=== PATIENT | male | born 1950 | race Caucasian/White ===

== ENCOUNTER → 2024-02-14 14:52 | Outpatient (REF) | payer MEDICARE, OTHER, SELFPAY | LOC: HWRCS 14:52 | PROVIDERS: ATTENDING PHYSICIAN Physician Assistant | DX: I25.10 Atherosclerotic heart disease of native coronary artery without angina pectoris (principal); I34.0 Nonrheumatic mitral (valve) insufficiency; R60.0 Localized edema | CPT/HCPCS: 93306 ==

== ENCOUNTER 2024-07-05 09:51 | Day surgery (SDC) | payer MEDICARE, OTHER, SELFPAY ==
[2024-07-05 11:04] VITALS: BMI 36.6
--- NOTE | 2024-07-05 12:55 | ITS.CL.CARDI ---
Shot Hole Driller - Cardioversion
Cardioversion
Procedure Report:
Procedure: Direct current electrical cardioversion
Pre-operative diagnosis: Persistent atrial fibrillation
Post-operative diagnosis: Persistent atrial fibrillation status post DC cardioversion to sinus rhythm
Anesthesia: MAC
Attending Physician: Axel Mares MD
Procedure Description: The patient was brought to the electrophysiology laboratory in the fasting state. Adherence to anticoagulation regimen was confirmed. Informed consent was obtained from the patient prior to the start of the procedure.
Electrodes were placed on the patient and connected to an external defibrillator. Monitoring of blood pressure, ECG tracings, and pulse oximetry was initiated. The pads were applied to the patient in the anterior and posterior positions. The patient
was sedated by the anesthesiologist. A 200 joule biphasic synchronized shock was delivered to the patient under MAC anesthesia. Sinus rhythm was successfully restored. The patient recovered uneventfully from MAC anesthesia. There were no immediate
post-procedure complications. The patient left the lab in good condition. The attending physician was present throughout the entire procedure.
Impression: Successful direct current cardioversion with tenriism of sinus rhythm after one 200 joule biphasic synchronized shock.
== END 2024-07-05 12:59 | disposition home or self-care (01) ==
LOC: CATH 09:51
PROVIDERS: ATTENDING PHYSICIAN Internal Medicine Cardiovascular Disease; FAMILY PHYSICIAN Family Medicine; OTHER PHYSICIAN Nuclear Medicine Nuclear Cardiology
DX: I48.19 Other persistent atrial fibrillation (principal); I25.10 Atherosclerotic heart disease of native coronary artery without angina pectoris; G47.33 Obstructive sleep apnea (adult) (pediatric); I10 Essential (primary) hypertension; E78.5 Hyperlipidemia, unspecified; Z95.0 Presence of cardiac pacemaker; Z95.1 Presence of aortocoronary bypass graft; Z79.01 Long term (current) use of anticoagulants
CPT/HCPCS: 92960; 93005

== ENCOUNTER 2024-08-01 11:20 | Inpatient (IN) | payer MEDICARE, OTHER, SELFPAY ==
[2024-07-24 10:48] VITALS: BMI 36.2
[2024-07-24 11:10] LABS: % Basophils 0.6 % (0-2); % Eosinophils 0.9 % (0-6); % Immature Granulocytes 0.2 % (0-0.5); % Lymphocytes 14.8 % (20.5-51.1); % Monocytes 7.2 % (1.7-9.3); % Neutrophils 76.3 % (42.2-75.2); Absolute Basophils 0.1 10^3/uL (0-0.2); Absolute Eosinophils 0.1 10^3/uL (0-0.7); Absolute Lymphocytes 1.6 10^3/uL (1.2-3.4); Absolute Monocytes 0.8 10^3/uL (0.1-0.6); Mean Corp Hgb Conc. 31.6 g/dL (33.0-37.0); Mean Corpuscular Hgb 28.8 pg (27.0-31.0); Mean Corpuscular Volume 91.3 fL (80.0-94.0); Nucleated Red Blood Cells % 0 % (-); Platelet Count 266 10^3/uL (130-400); Red Blood Cell Count 4.16 10^6/uL (4.70-6.10); Red Cell Dist. Width 16.4 % (11.5-14.5); White Blood Cell Count 10.5 10^3/uL (4.8-10.8)
[2024-07-24 11:21] LABS: ALT (SGPT) 31 U/L (0-50); AST (SGOT) 34 U/L (17-59); Albumin 4.6 g/dl (3.5-5.0); Alkaline Phosphatase 135 U/L (38-126); Blood Urea Nitrogen 19 mg/dl (9-20); Calcium 9.7 mg/dl (8.4-10.2); Carbon Dioxide 22 mmol/L (22-30); Chloride 109 mmol/L (98-107); Estimated Creatinine Clearance 61 ml/min; Glucose 100 mg/dl (70-99); Magnesium 2.3 mg/dl (1.6-2.3); Potassium 4.3 mmol/L (3.5-5.1); Sodium 145 mmol/L (135-145); Total Bilirubin 2.1 mg/dl (0.2-1.3); Total Protein 7.6 g/dl (6.3-8.2); eGFR > 60.00
[2024-07-24 11:28] LABS: INR 1.81; PT 20.8 Sec (11.4-14.6)
[2024-08-01] VITALS (18 sets, daily range): BP systolic 91–143; BP diastolic 57–91; BMI 35.7
--- NOTE | 2024-08-01 07:15 | PTCARENOTE ---
Pt arrived to medical lab assistant recovery at 0620. Pt arrived on 2liter nasal ,( pt wears at home) pt needed to rest a few minutes to catch breath prior to walking to bathroom. Pt's pulse ox 97%. Pt changed into gown after going to the bathroom, once patient
resting for about 10 minutes pt's breathing more comfortable. Pt stating he has become more short of breath easily with about taking 10 steps at home. Pt's lungs clear to auscultation. Pt appeared comfortable after resting for a few minutes. +4
pitting edema noted b/l lower extremities , pt also stated this just started 3 weeks ago, and stated none of his shoes fit. Dr Hair Hernandez in to see patient at 0655, made aware of pt's increased shortness of breath and increased swelling in legs
the last [address] Squires in to see patient at 0710 and made aware as well. No further treatment ordered. Pt resting comfortably on 2l nasal cannula pulse ox remaining 97%.
[2024-08-01] MEDS: PROSCAR 5 MG PO (07:22)
--- NOTE | 2024-08-01 08:19 | ITS.CL.ABL ---
Car Manager - Ablation
Ablation
Procedure Report:
ELECTROPHYSIOLOGIC STUDY AND POSSIBLE ABLATION
DATE: August 01, 2024
Primary Care Provider: Dr. Mali Montejo
Primary Cross Country Coach: Dr Hay Gomes
INDICATION:
Symptomatic Atrial Fibrillation.
Persistent
HISTORY: See H and P.
Symptomatic AF, poorly controlled with attempted medical therapy
He has a history of longstanding persistent hypertension. He underwent PVI in July 2022 and had been on amiodarone which was subsequently discontinued. He has developed recurrent atrial fibrillation as well as decompensated heart failure with
preserved ejection fraction. He has experienced increasing dyspnea on exertion, increasing weight gain and increasing lower extremity edema over the past 2 to 3 months.
Additionally he has a history of pulmonary hypertension which appears to be secondary related to volume overload.
Transesophageal echo from June 2023 demonstrated LVEF of 50 to 55% with mild LVH, biatrial enlargement, no left atrial appendage thrombus, mild MR and moderate to severe tricuspid regurgitation.
He has a history of coronary artery disease with with prior coronary artery bypass grafting surgery 2009.
He has history of prior permanent pacemaker implantation from 2022 with left bundle branch pacing.
Additionally, he has obstructive sleep apnea with prior poor compliance which apparently has improved. He also has a history of restrictive lung disease with decreased diffusion capacity.
Most recent coronary artery angiogram is October 15, 2021 demonstrating two-vessel coronary artery disease with patent DAVIS to LAD and SVG to OM1. The douglas LAD is noted to be flush occluded at the ostium. The distal LAD fills by patent DAVIS to
LAD. There is 100% proximal occluded OM1. The OM1 fills distally by a patent SVG to the OM1. The RCA is noted to have mild luminal irregularities.
Of note, he is presenting with progressive symptoms of decompensated congestive heart failure over the past 3 months. In addition to ablation today he will need hospitalization to manage decompensated heart failure which preexists today's
procedure. Furthermore, antiarrhythmic drug therapy has also been discussed as an outpatient. Patient and his prefer to avoid amiodarone. Will also proceed with planned dofetilide loading this hospital stay as was previously discussed as an
outpatient.
HAS-BLED: 1
Age
CHADSVASc: 4
CHF, NYHA Class 2, HFpEF
HTN
Age
Vascular Dz: CAD
PRESENTING RHYTHM: AF
ANTICOAGULATION: Eliquis 5 mg twice daily
'TIME-OUT': called and confirmed.
SEDATION/ANESTHESIA: provided via the anesthesia department using general anesthesia.
PROCEDURE:
Ultrasound Guidance performed by me was utilized for femoral venous Vascular Access b/l.
A decapolar CS catheter was placed within the CS for mapping and pacing.
The intracardiac ultrasound catheter was positioned in the RA for continuous intracardiac ultrasound imaging.
Heparin bolus and infusion to target ACT at 300 -350 seconds was administered. Transseptal puncture was performed. This entailed advancing a sheath with dilator into the superior vena cava and withdrawing both (monitoring intracardiac ultrasound,
fluoroscopy and tip pressure) with the tip oriented toward the atrial septum. The fossa ovalis was engaged (indicated by sudden displacement of the sheath tip as well as tenting of the fossa seen on intracardiac ultrasound).
Brockenbrough needle was utilized for transseptal. Left atrial catheter position was confirmed by echocardiographic imaging, pressure monitoring (LA mean pressure 15 mm Hg) and fluoroscopy. The sheath was advanced over the dilator and positioned in
the left atrium.
The multipolar mapping catheter was initially positioned through the transseptal sheath for high density mapping.
Geometry and voltage mapping was performed using the [employer] multipolar grid catheter. Ensite-X was utilized for three-dimensional electroanatomical mapping.
External cardioversion resulted in sinus rhythm.
A 3-D map was created using Ensite-X in Voxel mode. A 3-D reconstructed CT image was compared to the 3-D Navex map to assist in anatomic evaluation, mapping and ablation.
Anatomically there are 4 distinct pulmonary veins (LSPV, LIPV, RSPV, RIPV).
This demonstrated electrical isolation of the posterior wall of the left atrium, electrical isolation of the right superior and right inferior pulmonary veins as well as electrical isolation of the left inferior pulmonary vein. There is
reconnection at the left superior pulmonary vein towards its superior posterior quadrant.
The [employer] Pulse Select PFA catheter and system was used for cardiac ablation. Catheter positioning was guided and confirmed using both I.C.E. and fluoroscopy.
Initial target for ablation is reisolation of the left superior pulmonary vein using pulsed electric field energy. Subsequent to this additional ablation lesion set was performed ablating along the pulmonary venous side of the ligament of Rod
resulting in wide area circumferential ablation extending anteriorly along both left superior and left inferior pulmonary vein sets.
During today's procedure, programmed electrical stimulation in sinus rhythm including burst atrial pacing as well as delivery of atrial decremental extrastimuli failed to induce any sustained arrhythmias.
I.C.E. :
Pre-Ablation Post-Ablation
LVEF: 55 % 55 %
WMA: none none
Pericardial effusion: none none
COMPLICATIONS:
None
SUMMARY:
- Mapping and ablation to re-isolate the PVs
- Additional AF ablation set after PVI.
- 3-D Electroanatomical Mapping
- Intracardiac Ultrasound
- Additionally, the [employer] dual-chamber permanent pacemaker is interrogated at the beginning of the study and at the end of the study and is found to have stable normal function. Reprogramming of bradycardia pacing to DDDR 60�130. Furthermore
there is no change in the fluoroscopic appearance of the leads.
Post ablation, I discussed today's findings and results with the patient's , Natacha..
RECOMMENDATIONS:
- Observe in monitored bed.
- Maintain oral anticoagulation.
- Planned antiarrhythmic drug loading with dofetilide
- He is presenting with 3 months of progressive heart failure so while he is here we will plan for IV Lasix diuresis
- Office visit with Dr Gomes in 3 months.
- His dyspnea on exertion appears to be multifactorial related to both his cardiovascular disease with persistent symptomatic atrial fibrillation as well as his underlying lung disease. He will need continued evaluation and management of both for
maximal symptom improvement.
Copy to:
Dr. Mali Montejo
Dr Hay Gomes
[2024-08-01 09:07] LABS: ACT-LR - POC 353 Seconds (116-155)
[2024-08-01 09:28] LABS: ACT-LR - POC 340 Seconds (116-155)
[2024-08-01] MEDS: TYLENOL 650 MG PO ×3 (12:43→22:18)
[2024-08-01] MEDS: TIKOSYN 500 MCG PO (12:45)
--- NOTE | 2024-08-01 13:46 | W.CARD.TIKOS ---
Initiate Tikosyn
-
I verify that the patient has not taken any verapamil (Isoptin/Calan), ketoconazole (Nizoral), cimetidine (Tagamet), trimethoprim (Trimpex), trimethoprim/sulfamethoxazole (Bactrim), megesterol (Megace), prochlorperazine (Compazine),
hydrochlorothiazide (HCTZ), dolutegravir (Tivicay) or any Class I or Class III anti-arrhythmic within the last three days
AND
I verify that the patient has not taken amiodarone within the last THREE months, or that the patient's amiodarone plasma concentration is <0.3 mcg/mL.
Creatinine 1.2 mg/dL (0.7-1.3) 07/24/24 10:53
Estimated Creat Clear 61 ml/min 07/24/24 10:53
Does patient have a Ventricular Conduction Abnormality: No
I have assessed the baseline QTc interval (using QT for heart rate less than 60 bpm) and deemed the patient is appropriate for Dofetilide therapy. I understand that Tikosyn is contraindicated if the QTc is >440msec (500msec in patients with
ventricular conduction abnormalities).
Baseline QTc (in msec): 496
QTc interval is greater than 440msec without conduction abnormality OR greater than 500msec with a conduction abnormality, but acceptable to proceed per Cardiology attending.
Reason for Administration with Prolonged QTc: Paced Rhythm
Ordering Physician: Jose Enrique Hernandez
--- NOTE | 2024-08-01 13:49 | CM ---
Addendum entered by Kamila Huggins 08/01/24 15:33:
Telephone call to [facility] ([phone]) to check on co-pay for Dofetilide 500 mcg po bid. His co-pay would be $24.40 a month at [facility] and $40.19 for 90 day supply via mail order. Telephone call to [facility] in [place] to see if they have
Dofetilide 500 mcg in stock. [facility] does not have Dofetilide 500 mcg in stock. It will take them a few days to get in in once they receive the script. He will need a three day supply to go home with him. A three day script will need to be
sent to [facility] to get the three day supply.
Original Note:
Reviewed chart. Met with Mr. Nix to review discharge plans. He states prior to admission he resides with his spouse in a two story home with two steps to enter. He states he has a bedroom/full bathroom on eah floor. He states prior to
admission he was independent with ambulation adn and adls. He states ambulating is difficylt due to his SOB. He states he uses home 02 at 2 liters. He states [employer] services his home 02. He states he has a concentrator, portable, CPAP and
Nebulizer at home. He states he has a prescription plan and uses mail order and [facility] when needed. Medical work-up in progress. The discharge plan is to return home with his spouse when medically stable.
[2024-08-01] MEDS: LASIX 40 MG IV (16:02)
--- NOTE | 2024-08-01 17:48 | PTCARENOTE ---
Pt received post ablation, pt c/o pain due to sosa catheter, plan to remove in am. Right femoral vein site with dry and intact dressing, no sign of bleeding or hematoma. Pt hypersensitive to touch at this site and even when the bedsheet is lifted
and nothing is touched!!! Figure of eight suture removed per protocol, steristrip placed over puncture site, no sign of bleeding or hematoma. Pt with tachypnea, SOB at rest on 4L oxygen. Resp rate 24-28, 3+ RUDDY. Pt given 2 doses of lasix. Pt reports
3 months of SOB, RUDDY and years of coughing. Pt helped OOB to the chair using a walker, resp rate resolved to his baseline within 3 minutes. Telemetry shows atrial sensed V paced rhythm, Tikosyn 500mcg given but DC'd due to QTc >600ms.
[2024-08-01] MEDS: SENOKOT 8.6 MG PO (20:30)
[2024-08-01] MEDS: COLACE 100 MG PO (20:30)
[2024-08-01] MEDS: ROXICODONE 5 MG PO (20:30)
[2024-08-01] MEDS: ELIQUIS 5 MG PO (20:30)
[2024-08-01] MEDS: BYSTOLIC 5 MG PO (20:32)
[2024-08-02 05:01] LABS: Hematocrit 32.6 % (39.0-52.0); Hemoglobin 10.6 g/dL (13.0-18.0); Mean Corp Hgb Conc. 32.5 g/dL (33.0-37.0); Mean Corpuscular Hgb 30.1 pg (27.0-31.0); Mean Corpuscular Volume 92.6 fL (80.0-94.0); Mean Platelet Volume 10.4 fL (7.4-10.4); Platelet Count 201 10^3/uL (130-400); Red Blood Cell Count 3.52 10^6/uL (4.70-6.10); Red Cell Dist. Width 16.2 % (11.5-14.5); White Blood Cell Count 11.4 10^3/uL (4.8-10.8)
[2024-08-02 05:17] VITALS: BP 126/74
[2024-08-02 05:23] LABS: Blood Urea Nitrogen 24 mg/dl (9-20); Calcium 9.3 mg/dl (8.4-10.2); Carbon Dioxide 20 mmol/L (22-30); Chloride 107 mmol/L (98-107); Estimated Creatinine Clearance 66 ml/min; Glucose 144 mg/dl (70-99); Magnesium 2.2 mg/dl (1.6-2.3); Potassium 4.5 mmol/L (3.5-5.1); Sodium 141 mmol/L (135-145); eGFR > 60.00
[2024-08-02 05:36] VITALS: BMI 35.6
--- NOTE | 2024-08-02 06:00 | PTCARENOTE ---
Pt received at change of shift. VSS, Vpaced on tele with HR in the 60s, satting 96% on 4L NC. R groin site c/d/i with no complications noted. Pt instructed to hold pressure to site when coughing. OOB with x1 assist and rolling walker. TELLEZ, and
is able to recover within a few minutes at rest. Barraza catheter removed in AM per order. Pt due to void at 1100. Can make needs known. Call soares within reach.
[2024-08-02 06:12] LABS: Hepatitis C Antibody Negative (Negative)
[2024-08-02] MEDS: VENTOLIN NEBULES 2.5 MG INH (08:12)
[2024-08-02] MEDS: SPIRIVA RESPIMAT 2.5 MCG 2 PUFF INH (08:12)
[2024-08-02] MEDS: SYMBICORT 160/4.5 MCG INHALER 2 PUFF INH ×2 (08:12→19:36)
[2024-08-02 08:21] VITALS: BP 122/78
[2024-08-02] MEDS: ELIQUIS 5 MG PO ×2 (08:49→20:23)
[2024-08-02] MEDS: NORVASC 5 MG PO (08:49)
[2024-08-02] MEDS: COLACE PO (08:49)
[2024-08-02] MEDS: ZYLOPRIM 100 MG PO (08:49)
[2024-08-02] MEDS: LASIX 40 MG PO (08:49)
[2024-08-02] MEDS: PROSCAR 5 MG PO (08:50)
[2024-08-02] MEDS: CRESTOR 20 MG PO (08:50)
--- NOTE | 2024-08-02 09:51 | W.PN.CARDCBS ---
Addendum entered and electronically signed by Jose Enrique Hernandez MD 08/02/24 14:24:
Patient seen, interviewed and examined by me.
Well-appearing, no acute distress
Regular rate and rhythm with normal S1 and S2, no S3 no S4. There is a grade 1/6 apical holosystolic murmur and no rubs. PMI is normally placed.
Lungs Expiratory wheezes bilaterally particularly at the bases
Abdomen soft nontender nondistended with normoactive bowel sounds
Extremities show improved edema bilaterally no clubbing or cyanosis.
Neurologic exam is grossly nonfocal.
He has clinical heart failure, heart failure with preserved ejection fraction decompensating 3 months prior to this hospital visit. We will take this opportunity to more aggressively treat him. Lasix 40 mg IV now, check blood work in the morning,
if he is feeling better we can discharge him to home on a higher dose of outpatient Lasix. That is we would increase Lasix to 40 mg p.o. daily and check blood work again in 1 week.
Regarding his arrhythmias, attempt at type III antiarrhythmic drug therapy resulted in QT interval prolongation. If he has recurrence of atrial fibrillation we could once again consider amiodarone with close QT interval monitoring.
Original Note:
Today's Communication / Plan
-
post ablation, failed dofetilide loading
consult pulm for increased WOB, hypoxia, wheezes
Switch Lasix to PO 40mg this am
poss d/c home later today or tomorrow
Impression / Plan
-
Primary Care Provider: Dr. Mali Montejo
Primary Design Teacher: Dr Hay Gomes
He has a history of longstanding persistent hypertension. He underwent PVI in July 2022 and had been on amiodarone which was subsequently discontinued. He has developed recurrent atrial fibrillation as well as decompensated heart failure with
preserved ejection fraction. He has experienced increasing dyspnea on exertion, increasing weight gain and increasing lower extremity edema over the past 2 to 3 months.
Additionally he has a history of pulmonary hypertension which appears to be secondary related to volume overload.
Transesophageal echo from June 2023 demonstrated LVEF of 50 to 55% with mild LVH, biatrial enlargement, no left atrial appendage thrombus, mild MR and moderate to severe tricuspid regurgitation.
He has a history of coronary artery disease with with prior coronary artery bypass grafting surgery 2009.
He has history of prior permanent pacemaker implantation from 2022 with left bundle branch pacing.
Additionally, he has obstructive sleep apnea with prior poor compliance which apparently has improved. He also has a history of restrictive lung disease with decreased diffusion capacity.
Most recent coronary artery angiogram is October 15, 2021 demonstrating two-vessel coronary artery disease with patent DAVIS to LAD and SVG to OM1. The eagle LAD is noted to be flush occluded at the ostium. The distal LAD fills by patent DAVIS to
LAD. There is 100% proximal occluded OM1. The OM1 fills distally by a patent SVG to the OM1. The RCA is noted to have mild luminal irregularities.
Of note, he is presenting with progressive symptoms of decompensated congestive heart failure over the past 3 months. In addition to ablation today he will need hospitalization to manage decompensated heart failure which preexists today's
procedure. Furthermore, antiarrhythmic drug therapy has also been discussed as an outpatient. Patient and his prefer to avoid amiodarone. Will also proceed with planned dofetilide loading this hospital stay as was previously discussed as an
outpatient.
Impression:
Symptomatic persistent Afib prior PVI 08/14
post redo PVI 08/01/24
Acute on chronic diastolic HFpEF
Acute on chronic hypoxic respiratory failure
AYLA/CPAP
HTN
RLD/COPD Home O2 PRN
SSS post PPM 2022
CAD prior CABGx2 2020
mod-severe TR
Gout
Asthma
Depression
Anxiety
Plan:
post ablation with elevated filling pressures
IV diuresis -1700cc, still with WOB and wheezing this am
Attempted antiarrhythmic drug therapy with Dofetilide but after 1 dose QTc 613, stopped
He failed Amiodarone unsure of reaction but would prefers to avoid, but if needs it would be willing to try if Afib recurs
CHADSVASc =4
Will c/s Pulmonary with continued respiratory distress and hypoxia despite diuresis
Switch to PO lasix 40mg daily, LE edema much improved, Check BMP in 1-2 weeks
reinforced strict I/O, daily wts, 2GNa diet
Continue OAC Eliquis
continue nebivolol
Activity restrictions reviewed
C&DB, I.S.
f/u DCA 3 mo
poss home later today or tomorrow pending pulm input
Progress Note - Design Teacher
Subjective
Date of Service: August 02, 2024
no cp, moderate dyspnea and WOB
Objective
Labs:
08/02/24 04:45
08/02/24 04:45
Labs
Hgb 10.6 g/dL (13.0-18.0) L 08/02/24 04:45
Hct 32.6 % (39.0-52.0) L 08/02/24 04:45
Plt Count 201 10^3/uL (130-400) 08/02/24 04:45
PT 20.8 Sec (11.4-14.6) H 07/24/24 10:53
INR 1.81 07/24/24 10:53
Sodium 141 mmol/L (135-145) 08/02/24 04:45
Potassium 4.5 mmol/L (3.5-5.1) 08/02/24 04:45
BUN 24 mg/dl (9-20) H 08/02/24 04:45
Creatinine 1.1 mg/dL (0.7-1.3) 08/02/24 04:45
Glucose 144 mg/dl (70-99) H 08/02/24 04:45
Vital Signs and I&O:
Vital Signs
Temp Pulse Resp BP Pulse Ox
97.4 F 63 24 122/78 94
08/02/24 08:35 08/02/24 08:21 08/02/24 08:35 08/02/24 08:21 08/02/24 08:41
Vital Signs
Temp Pulse Resp BP Pulse Ox
97.4 F 63 24 122/78 94
08/02/24 08:35 08/02/24 08:21 08/02/24 08:35 08/02/24 08:21 08/02/24 08:41
Intake & Output
07/31/24 08/01/24 08/02/24 08/03/24
06:59 06:59 06:59 06:59
Intake Total 985 / 985 240 / 240
Output Total 2700 / 2700 125 / 125
Balance -1715 / -1715 115 / 115
Physical Exam
Physical Exam
NAD, AOX3
S1, S2, RRR, I/ JUWAN
diminished t/o, exp wheeze t/o, no rales, rhonchi
SNTND bsx4
R fem site c/d/i, soft, no HT
+2 b/l LE edema
--- NOTE | 2024-08-02 09:53 | CON.PUL ---
Consultation
Consultation Request
Date/Time Consultation Requested: 08/02/2024- AM
Date/Time Consultation Performed: 08/02/2024- AM
Requesting Provider: Hospitalist
Performing Provider: Dr. Quinonez
Reason for Consultation: Shortness of breath and wheezing
Medical History
-
Chief Complaint: Shortness of breath and wheezing
History of Present Illness:
73-year-old male non-smoker with a history of COPD/asthma overlap, pulmonary nodules, CAD, AYLA, obesity with longstanding shortness of breath and atrial fibrillation status post cardioversion and now ablation with significant wheezing and shortness
of breath thereafter-pulmonary consulted for wheezing/shortness of breath 08/02/2024. Patient states that his shortness of breath is progressively gotten worse. His leg swelling is also gotten significantly worse. He denies any chest pain, chest
tightness but admits to wheezing. He has no chest congestion, productive cough, mopped assist, postnasal drip, reflux, abdominal pain.
Past Medical History
Past Medical History: None (COPD/asthma overlap. Restrictive lung disease. Decreased diffusing capacity. Pulmonary nodule. Mediastinal lymphadenopathy. Hypertension. CAD/CABG 2009. Depression. Atrial fibrillation/cardioversion/ablation.
Insomnia. Obesity. Gout.)
Past Surgical History: None (Appendectomy. CABG. Root canal. Hemorrhoid surgery. Knee replacement 2012.)
Social History
Tobacco: Non-smoker
Alcohol: Occasional
Drug: None
Personal:
Living: With Family
Occupational Exposures: No known asbestos exposure
Environmental Exposures: No known tuberculosis exposure
Family History
Family History: Other (Father-CVA. Mother-melanoma)
Allergies / Home Medications
Allergies
Allergy/AdvReac Type Severity Reaction Status Date / Time
Yellow Jacket Allergy Anaphylaxis Uncoded 07/22/23 07:43
Home Medications
�Medication �Instructions �Recorded �Confirmed �Last Taken �Type
rosuvastatin 20 mg tablet 20 mg PO DAILY 11/07/12 08/01/24 07/31/24 09:00 History
epinephrine 0.3 mg/0.3 mL 0.3 mg (0.3 mL) IM .STAT PRN bee 07/14/19 08/01/24 Unknown Rx
injection, auto-injector (EpiPen) sting with allergic reacti ##2
allopurinol 100 mg tablet 100 mg PO DAILY 10/15/21 08/01/24 07/31/24 09:00 History
amlodipine 5 mg tablet 5 mg PO DAILY 10/15/21 08/01/24 07/31/24 09:00 History
apixaban 5 mg tablet (Eliquis) 5 mg PO BID 10/15/21 08/01/24 07/31/24 19:00 History
finasteride 5 mg tablet 5 mg PO DAILY 10/15/21 08/01/24 07/31/24 09:00 History
albuterol sulfate 2.5 mg/3 mL 2.5 mg inhalation DAILY 08/05/22 08/01/24 07/31/24 09:00 History
(0.083 %) solution for nebulization
nebivolol 5 mg tablet (Bystolic) 5 mg PO HS 11/10/22 08/01/24 07/31/24 19:00 History
budesonide 160 mcg-glycopyr 9 2 inh inhalation DAILY 07/05/24 08/01/24 07/31/24 09:00 History
mcg-formot 4.8 mcg/actuation HFA
inhaler (Breztri Aerosphere)
furosemide 20 mg tablet 20 mg PO DAILY 07/05/24 08/01/24 07/31/24 09:00 History
Review of Systems
Vitals / Labs / Diagnostic Testing
Vital Signs
Temp Pulse Resp BP Pulse Ox
97.4 F 63 24 122/78 94
08/02/24 08:35 08/02/24 08:21 08/02/24 08:35 08/02/24 08:21 08/02/24 08:41
Lab Data
08/02/24 04:45
08/02/24 04:45
Diagnostic Testing:
Assessment
-
73-year-old male non-smoker with a history of COPD/asthma overlap, pulmonary nodules, CAD, AYLA, obesity with longstanding shortness of breath and atrial fibrillation status post cardioversion and now ablation with significant wheezing and shortness
of breath thereafter-pulmonary consulted for wheezing/shortness of breath 08/02/2024
Status post ablation-failed dofetilide loading
COPD/asthma overlap with mild acute exacerbation
Mild leukocytosis-WBC 11.4
Xeyqwb-khfuanbfya-aquhsaaeqj 10.6
Mild hyperglycemia-blood sugar 144
Conditions present prior to admission:
COPD/asthma overlap.
Restrictive lung disease.
Decreased diffusing capacity.
Pulmonary nodule.
Mediastinal lymphadenopathy.
Hypertension.
CAD/CABG 2009.
Depression.
Atrial fibrillation/cardioversion/ablation.
Insomnia.
Obesity.
Gout.
Appendectomy. CABG. Root canal. Hemorrhoid surgery. Knee replacement 2012.
Plan
Patient's respiratory decompensation likely a combination of fluid overload as well as underlying COPD/asthma overlap-wheezing may be 'cardiac wheezing'
Patient has been followed by pulmonary for many years and below are summarized his radiographs, CT chest, PET scan, VQ scan, PFTs, and cardiac workup
His chronic shortness of breath is felt to be multifactorial-cardiac, arrhythmias, restrictive lung disease, obesity, severe reduction in diffusing capacity, mild anemia and has been maintained on Breztri and nebulizers in addition to oxygen-2 L at
rest and 5 L with exertion-has portable oxygen concentrator
Supplement oxygen as needed
Nebulizers-Xopenex and ipratropium bromide
Continue with Symbicort and Spiriva
Resume Breztri when discharged
Will consider Biologics such as Dupixent with persistent wheezing
Check chest x-ray
Check proBNP
Consider diuresis with significant increase in leg edema
Monitor renal function, electrolytes, intake/output, lower extremity edema and weight
Replace electrolytes as needed
Cardiology following-correspondence reviewed
The patient has had significant lymphadenopathy which is actually increased-consideration towards biopsy has been discussed on multiple occasions-patient does not want workup-potential for lymphoproliferative disorder has been reviewed with him-he
understands and does not wish further workup-will continue to address
Monitor hemoglobin
Transfuse as needed
Monitor blood sugar
Insulin supplementation as needed
DVT prophylaxis-on Eliquis
Nutrition
Early mobilization
The patient usually sees Dr. Quinonez in the office-last saw 08/23/2023 and saw Vita Ruyb 05/31/[address] Quinonez 9:30 AM 10/02/2024
Diagnostic data:
Chest x-ray 10/11/12-NAD .�������
Chest x-ray 12/09/21-Mild CHF-patient notified-told to see jewelry manager.�������
CT Chest 07/13/22: Solitary 6 mm right upper lobe pulmonary nodule. Mild centrilobular emphysematous change. Scattered moderately enlarged mediastinal and bilateral hilar lymph nodes. .�������
CT chest 12/24/2022-Comparison made to 07/13/2022, unchanged 6.4 mm nodule anterior right apex in the upper lobe, mild centrilobular emphysema, fairly extensive mediastinal and hilar lymphadenopathy measuring up to 14 mm but no appreciable change in
size compared to prior CT, right hilar lymph node measures 19 mm previously 19 mm�����
CT chest 07/07/23-slightly progressed diffuse moderately enlarged mediastinal and hilar lymphadenopathy, suspicious for indolent lymphoproliferative disorder
PET scan 01/07/2023-Stable mediastinal and hilar lymphadenopathy with only mild FDG avid and favor reactive, stable right upper lobe nodule without significant FDG activity and a new 7 mm left upper lobe nodule without significant FDG activity,
grossly stable lymphadenopathy measuring up to 1.8 cm in the precarinal region with a maximum SUV 4.1, 3.6 cm in the right hilar region maximum SUV 2.9 and 2.5 cm in the left hilar region maximum SUV 2.7, 6 mm nodule right upper lobe maximum SUV 1.2
and the new 7 mm nodule in the left upper lobe maximum SUV 1.0-patient notified-repeat CT chest in 4 months make appointment with PFTs-Dr. Quinonez placed call to review with radiology-if lymph nodes are truly significantly larger I will discuss
potential biopsy sooner than the 4-month observational follow-up�������
PET 01/07/2023: Stable mediastinal and hilar lymphadenopathy, only mildly FDG avid and favored reactive. Precarinal lymph node measuring 1.8 cm, SUV max 4.1. 3.6 cm node in the right hilar region, max SUV 2.9. 2.5 cm node in the left hilar region,
max SUV 2.7. Stable small right upper lobe nodule without significant FDG activity, max SUV 1.2. New 7 mm left upper lobe nodule without significant FDG activity, max SUV 1. Overall findings are most in keeping with a waxing and waning
infectious/inflammatory process. Recommend follow-up nonstick contrast CT in 3 to 6 months.�������.�������
PET scan 01/07/23-Dr. Quinonez reviewed with radiology-asked for addendum as discrepancy was noted on CT and PET lymph node measurements-addendum reviewed-mediastinal and hilar lymphadenopathy is grossly stable in size compared to prior CT 12/24/22 when
measured in similar fashion .�������
Chest x-ray 03/07/23-Mild cardiomegaly, mild bilateral upper lobe emphysema, previous CABG .�������
Chest x-ray 07/07/43-NAD.�������
CT chest 07/07/43-slightly progressed diffuse moderately enlarged mediastinal and hilar lymphadenopathy, new right axillary lymphadenopathy suspicious for indolent lymphoproliferative disorder, stable or resolved small pulmonary nodules-patient
notified-told may need biopsy.�������
VQ scan 07/07/23-low probability for pulmonary embolism-patient notified
Echocardiogram 09/10/15-EF 55-60%, mild mitral regurgitation, no aortic stenosis, PA systolic 27��
�����
Cardiac catheterization 10/15/2126-Ume-crclxy CAD, patent DAVIS to LAD and SVG to OM 1, normal left ventricular function.�������
Cardioversion 01/01/22-successful cardioversion to sinus rhythm with 200 J synchronized shock�������
ECHO 07/09/2022: Normal LV size and function. EF 60 to 65%. Mild concentric LVH. Mild to moderate MR. Mild to moderate TR. Estimated PA pressure 49-51.
PFT 12/01/21-FEV1 2.11 L-73%, FVC 3.07 L-77BD response, TLC 73%, RV 69%, DLCO 46%. Mild restriction and moderate reduction in diffusing capacity.�������
Spirometry 03/02/22-FEV1 1.93 L-67%, FVC 2.75 L-69%. Mild restriction.�������
PFT 02/23/23-FEV1 2.23-70%, FVC 3.07-70%, TLC 76%, RV 73%, DLCO 29%, DLCO/VA 55%. Mild restriction and moderate reduction in diffusing capacity.�������
Spirometry 06/07/23-FEV1 1.98-70%, FVC 2.9-74%. Mild restriction.�������
Spirometry 08/23/23-FEV1 1.84-65%, FVC 2.6-67%. Moderate restriction.
HST 03/19/22-NACHO-16.7, desaturation derek 77, 4.8% of time, less than 90% saturation
Data Reviewed
-
PFT: Report reviewed by me
EKG: Report reviewed by me
Radiology: Image personally visualized and interpreted and Report reviewed by me
CT Scan: Image personally visualized and interpreted and Report reviewed by me
Medical Tests (Nuc Med, Echo etc): Report reviewed by me
Labs: Labs reviewed by me
Total Time Spent with Patient (in minutes): 65
[2024-08-02 11:35] VITALS: BP 115/72
[2024-08-02 12:46] LABS: NT-proBNP 4380 pg/ml
[2024-08-02] MEDS: XOPENEX 0.63 MG INHALANT SOLUTION INH ×2 (13:06→19:35)
[2024-08-02] MEDS: ATROVENT NEBULES 0.5 MG INH ×2 (13:06→19:35)
--- NOTE | 2024-08-02 13:50 | CM ---
Reviewed chart. Met with and Mrs. Nix to review discharge plans. He states he is feelin sob. He states he not taking dofetilide anymore. Prior to admission he resides with his spouse in a two story home with two steps to enter. He has a
bedroom/full bathroom on each floor. Prior to admission he was independent with ambulation and adls. Ambulating has been difficult due to his SOB. He has home 02 at home and [employer] services his home 02. He has a concentrator, Portable home 02,
CPAP Machine and Nebulizer at home. He has a prescription plan and uses mail order and [facility] when needed. Will need to see his current functional level to see if he will have any skilled care needs. Medical work-up in progress. The
discharge plan is to return home with his spouse when medically stable.
[2024-08-02] MEDS: LASIX 40 MG IV (14:37)
[2024-08-02 15:50] VITALS: BP 110/66
--- NOTE | 2024-08-02 19:19 | PTCARENOTE ---
Pt OOB to chair and walking @15 feet in his room with oxygen, limited by his extreme SOB with activity. Pt takes 2 minutes of rest to return to his baseline. Pt seen by . Pt stated great improvement after a neb treatment. Pt voiding
without difficulty after sosa catheter was removed and has diuresed >1000ml after IV lasix . Pro BNP 4380. Telemetry shows paced rhythm at a rate of 60-70.
[2024-08-02 19:37] VITALS: BP 124/73
[2024-08-02] MEDS: COLACE 100 MG PO (20:22)
[2024-08-02] MEDS: SENOKOT 8.6 MG PO (20:22)
[2024-08-02] MEDS: BYSTOLIC 5 MG PO (20:23)
[2024-08-02 23:19] VITALS: BP 127/88
--- NOTE | 2024-08-03 04:11 | PTCARENOTE ---
Pt remains AV Paced on tele with HR in the 60s. R groin site from ablation c/d/i with no sign of hematoma. Pt requesting to take oxygen off to walk to bathroom, encouraged to keep O2 on for ambulation but refuses. RN supervised pt ambulate to
bathroom with rolling walker. After using the bathroom and washing his face, pt appeared SOB. Pt ambulated back to bed and satting 82%. 2L O2 placed back on pt, recovered back to 94% at rest. Plan of care discussed and pt reports no concerns at
this time. Can make needs known. Call soares within reach.
[2024-08-03 05:25] VITALS: BP 149/79
[2024-08-03 05:26] VITALS: BP 149/79
[2024-08-03 05:31] VITALS: BMI 35.6
[2024-08-03 06:22] LABS: Blood Urea Nitrogen 26 mg/dl (9-20); Calcium 8.9 mg/dl (8.4-10.2); Carbon Dioxide 21 mmol/L (22-30); Chloride 106 mmol/L (98-107); Estimated Creatinine Clearance 66 ml/min; Glucose 109 mg/dl (70-99); Magnesium 2.1 mg/dl (1.6-2.3); Sodium 142 mmol/L (135-145); eGFR > 60.00
[2024-08-03] MEDS: SYMBICORT 160/4.5 MCG INHALER 2 PUFF INH (07:16)
[2024-08-03] MEDS: ATROVENT NEBULES 0.5 MG INH (07:16)
[2024-08-03] MEDS: XOPENEX 0.63 MG INHALANT SOLUTION INH (07:16)
[2024-08-03 08:01] VITALS: BP 128/117
[2024-08-03 08:04] VITALS: BP 136/75
[2024-08-03] MEDS: COLACE 100 MG PO (08:32)
[2024-08-03] MEDS: CRESTOR 20 MG PO (08:32)
[2024-08-03] MEDS: ZYLOPRIM 100 MG PO (08:32)
[2024-08-03] MEDS: NORVASC 5 MG PO (08:32)
[2024-08-03] MEDS: LASIX 40 MG PO (08:33)
[2024-08-03] MEDS: ELIQUIS 5 MG PO (08:33)
[2024-08-03] MEDS: PROSCAR 5 MG PO (08:33)
--- NOTE | 2024-08-03 09:05 | W.PN.CARDCBS ---
Addendum entered and electronically signed by KIMBERLY Pyle 08/06/24 16:02:
Clarification on patient respiratory status:
Acute on chronic hypoxic respiratory failure - patient uses oxygen continuously at home with increased oxygen during hospitalization
Addendum entered and electronically signed by Yuesf Kwan MD 08/03/24 10:29:
Patient seen and examined
Agree with HAULAGE ENGINE OPERATOR note and assessment
. HAULAGE ENGINE OPERATOR plan
Examination:
�
����Physical Exam
�
���������������������General:��no apparent distress, not acutely ill
�
���������������������������Neck:��supple. no meningeal signs. normal psoterior pharynx
������������������������
���������������������������Heart:��s1/s2 regular rate and rhythm, no murmur. equal radial pulses.
�
��������������������������Lungs: ��no acute respiratory distress. clear bilaterally
�
����������������������Abdomen:�normal bowel sounds. not tender. no CVAT
�
��������������������������Neuro:��alert and oriented. no focal neurological deficits
�
������������������������������Skin: ��no rash
�
�����������������������Psychiatric:�well kept. interactive and cooperative
�
�����������������������Extremities:��no edema. no calf tenderness. negative homans. good distal pulses
�
�
�
��
�
IMPRESSION
Persistent AFib, prior PCI (07/2022)
S/P PFA, 08/01/2024
Acute on chronic diastolic HFpEF, 55-60%
Acute on chronic hypoxic respiratory failure
RLD/COPD, on home O2
Severe pulm HTN, PA 70-75 (01/2024)
SSS, s/p PPM 2(09/2022)
CAD, s/p CABx2 (01/2010)
mod-severe TR
HTN
Gout
Asthma
Depression
Anxiety
PLAN:
Tele- V/AV paced 60s, underlying sinus rhythm
Groin site stable
Failed dofetilide therapy, amiodarone contraindicated w/pulm issues
Eliquis resumed post procedure
Wheezing/dyspnea modestly improved after diuresis w/IV lasix- will increase home lasix to 40mg daily
Appreciate Pulm consult- albuterol discontinued in favor of Xopenex, will resume Breztri at home, pulm followup in September
followup at [facility] office as scheduled
home today
Original Note:
Today's Communication / Plan
-
Increase outpt lasix to 40mg/d
Pulm to order xopenex, adjust pulm meds
home today
Impression / Plan
-
PCP: Mali Montejo MD
CDY: Hay Gomes, DO
Pulm: Favian Quinonez MD
73 y/o PMH sig for AFib w/PVI in 2021, presenting now with 3 month history progressive heart failure symptoms, including dyspnea and BLE 3-4+ edema. He has multifactorial dyspnea related to COPD/hypoxic respiratory failure on home O2 as well as
recurrent symptomatic AFib. [id number]=2, maintained on eliquis 5mg BID.
Presented to EP lab 08/01, s/p PFA. Post procedure, plan was for dofetilide initiation, however with first dose he developed prolonged QT and drug was discontinued. He remained overnight for diuresis and pulmonary consult to help with
COPD/respiratory failure. Did will with IV lasix and will increase daily po dose at d/c. Pulm inhalers and MN adjusted per pulm. CXR w/possible HF component moreso than pulmonary at this time.
Feeling much better today with reduced BLE edema and breathing is stable on new pulm meds, oxygen.
IMPRESSION
Persistent AFib, prior PCI (07/2022)
S/P PFA, 08/01/2024
Acute on chronic diastolic HFpEF, 55-60%
Acute on chronic hypoxic respiratory failure
RLD/COPD, on home O2
Severe pulm HTN, PA 70-75 (01/2024)
SSS, s/p PPM 2(09/2022)
CAD, s/p CABx2 (01/2010)
mod-severe TR
HTN
Gout
Asthma
Depression
Anxiety
PLAN:
Tele- V/AV paced 60s, underlying sinus rhythm
Groin site stable
Failed dofetilide therapy, amiodarone contraindicated w/pulm issues
Eliquis resumed post procedure
Wheezing/dyspnea modestly improved after diuresis w/IV lasix- will increase home lasix to 40mg daily
Appreciate Pulm consult- albuterol discontinued in favor of Xopenex, will resume Breztri at home, pulm followup in September
followup at [facility] office as scheduled
home today
PREADMIT DATA:
He has a history of longstanding persistent hypertension. He underwent PVI in July 2022 and had been on amiodarone which was subsequently discontinued. He has developed recurrent atrial fibrillation as well as decompensated heart failure with
preserved ejection fraction. He has experienced increasing dyspnea on exertion, increasing weight gain and increasing lower extremity edema over the past 2 to 3 months.
Additionally he has a history of pulmonary hypertension which appears to be secondary related to volume overload.
Transesophageal echo from June 2023 demonstrated LVEF of 50 to 55% with mild LVH, biatrial enlargement, no left atrial appendage thrombus, mild MR and moderate to severe tricuspid regurgitation.
He has a history of coronary artery disease with with prior coronary artery bypass grafting surgery 2009.
He has history of prior permanent pacemaker implantation from 2022 with left bundle branch pacing.
Additionally, he has obstructive sleep apnea with prior poor compliance which apparently has improved. He also has a history of restrictive lung disease with decreased diffusion capacity.
Most recent coronary artery angiogram is October 15, 2021 demonstrating two-vessel coronary artery disease with patent DAVIS to LAD and SVG to OM1. The andreafski LAD is noted to be flush occluded at the ostium. The distal LAD fills by patent DAVIS to
LAD. There is 100% proximal occluded OM1. The OM1 fills distally by a patent SVG to the OM1. The RCA is noted to have mild luminal irregularities.
Progress Note - Developer Architect
Subjective
Date of Service: August 03, 2024
improved, stable dyspnea
denies cp/palps
oob to chair, bathroom
using continuous O2
Objective
Labs:
Labs
Hgb 10.6 g/dL (13.0-18.0) L 08/02/24 04:45
Hct 32.6 % (39.0-52.0) L 08/02/24 04:45
Plt Count 201 10^3/uL (130-400) 08/02/24 04:45
PT 20.8 Sec (11.4-14.6) H 07/24/24 10:53
INR 1.81 07/24/24 10:53
Sodium 142 mmol/L (135-145) 08/03/24 05:29
Potassium 4.0 mmol/L (3.5-5.1) 08/03/24 05:29
BUN 26 mg/dl (9-20) H 08/03/24 05:29
Creatinine 1.1 mg/dL (0.7-1.3) 08/03/24 05:29
Glucose 109 mg/dl (70-99) H 08/03/24 05:29
Vital Signs and I&O:
Vital Signs
Temp Pulse Resp BP Pulse Ox
97.3 F 67 18 136/75 94
08/03/24 08:03 08/03/24 08:32 08/03/24 08:28 08/03/24 08:32 08/03/24 08:28
Vital Signs
Temp Pulse Resp BP Pulse Ox
97.3 F 67 18 136/75 94
08/03/24 08:03 08/03/24 08:32 08/03/24 08:28 08/03/24 08:32 08/03/24 08:28
Intake & Output
08/01/24 08/02/24 08/03/24 08/04/24
06:59 06:59 06:59 06:59
Intake Total 985 / 985 240 / 240
Output Total 2700 / 2700 1880 / 1880 150 / 150
Balance -1715 / -1715 -1640 / -1640 -150 / -150
Physical Exam
Physical Exam
AAOx3, MAEE 02/25
RRR S1 S2, 1/6 murmur at apex
Bilat bibasilar expiratory wheezing noted, mildly dyspneic at rest
soft abd, + bs
right groin site without ht/bleeding
bilat extremties w/+2-3 edema, warm, palpable pulses
[2024-08-03 09:15] LABS: Hemoglobin 11.6 g/dL (13.0-18.0); Mean Corp Hgb Conc. 33.1 g/dL (33.0-37.0); Mean Corpuscular Hgb 30.9 pg (27.0-31.0); Mean Corpuscular Volume 93.3 fL (80.0-94.0); Mean Platelet Volume 10.4 fL (7.4-10.4); Platelet Count 227 10^3/uL (130-400); Red Blood Cell Count 3.75 10^6/uL (4.70-6.10); Red Cell Dist. Width 16.5 % (11.5-14.5); White Blood Cell Count 16.6 10^3/uL (4.8-10.8)
[2024-08-03 09:44] LABS: Blood Urea Nitrogen 25 mg/dl (9-20); Calcium 9.4 mg/dl (8.4-10.2); Carbon Dioxide 21 mmol/L (22-30); Chloride 104 mmol/L (98-107); Estimated Creatinine Clearance 61 ml/min; Glucose 133 mg/dl (70-99); Potassium 3.9 mmol/L (3.5-5.1); Sodium 144 mmol/L (135-145); eGFR > 60.00
--- NOTE | 2024-08-03 10:22 | W.PN.PUL.V3 ---
Today's Communication / Plan
-
Wean oxygen
Continue diuresis
Continue nebulizers while he will
Discharge on Breztri, Xopenex as well as oxygen-no steroids needed
Assessment
-
73-year-old male non-smoker with a history of COPD/asthma overlap, pulmonary nodules, CAD, AYLA, obesity with longstanding shortness of breath and atrial fibrillation status post cardioversion and now ablation with significant wheezing and shortness
of breath thereafter-pulmonary consulted for wheezing/shortness of breath 08/02/2024
Status post ablation-(failed dofetilide loading)
COPD/asthma overlap with mild acute exacerbation
Mild leukocytosis-WBC 11.4
Atncxj-azbijnqzgv-ghnisoodnp 10.6
Mild hyperglycemia-blood sugar 144
Conditions present prior to admission:
COPD/asthma overlap.
Restrictive lung disease.
Decreased diffusing capacity.
Pulmonary nodule.
Mediastinal lymphadenopathy.
Hypertension.
CAD/CABG 2009.
Depression.
Atrial fibrillation/cardioversion/ablation.
Insomnia.
Obesity.
Gout.
Appendectomy. CABG. Root canal. Hemorrhoid surgery. Knee replacement 2012.
Plan
Patient's respiratory decompensation likely a combination of fluid overload as well as underlying COPD/asthma overlap-wheezing may be 'cardiac wheezing'
Patient has been followed by pulmonary for many years and below are summarized his radiographs, CT chest, PET scan, VQ scan, PFTs, and cardiac workup
His chronic shortness of breath is felt to be multifactorial-cardiac, arrhythmias, restrictive lung disease, obesity, severe reduction in diffusing capacity, mild anemia and has been maintained on Breztri and nebulizers in addition to oxygen-2 L at
rest and 5 L with exertion-has portable oxygen concentrator
Supplement oxygen as needed-attempt to wean to room air-assess discharge supplemental oxygen needs
Nebulizers-Xopenex and ipratropium bromide
Patient likes Xopenex better than albuterol-will arrange as an outpatient
Continue with Symbicort and Spiriva
Resume Breztri when discharged-reviewed with cardiology
Will consider Biologics such as Dupixent with persistent wheezing
Chest x-ray with mild edema
proBNP elevated
Continue diuresis with significant increase in leg edema-improving with diuresis and wheezing improving with diuresis
Monitor renal function, electrolytes, intake/output, lower extremity edema and weight
Replace electrolytes as needed
Cardiology following-correspondence reviewed
The patient has had significant lymphadenopathy which is actually increased-consideration towards biopsy has been discussed on multiple occasions-patient does not want workup-potential for lymphoproliferative disorder has been reviewed with him-he
understands and does not wish further workup-will continue to address
Monitor hemoglobin
Transfuse as needed
Monitor blood sugar
Insulin supplementation as needed
DVT prophylaxis-on Eliquis
Nutrition
Early mobilization
Stable from a pulmonary perspective for proposed discharged-continue with Breztri and Xopenex in addition to oxygen
The patient usually sees Dr. Quinonez in the office-last saw 08/23/2023 and saw Vita Ruby 05/31/[address] Quinonez 9:30 AM 10/02/2024
Diagnostic data:
Chest x-ray 10/11/12-NAD .�������
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
CT Chest 07/13/22: Solitary 6 mm right upper lobe pulmonary nodule. Mild centrilobular emphysematous change. Scattered moderately enlarged mediastinal and bilateral hilar lymph nodes. .�������
CT chest 12/24/2022-Comparison made to 07/13/2022, unchanged 6.4 mm nodule anterior right apex in the upper lobe, mild centrilobular emphysema, fairly extensive mediastinal and hilar lymphadenopathy measuring up to 14 mm but no appreciable change in
size compared to prior CT, right hilar lymph node measures 19 mm previously 19 mm�����
CT chest 07/07/23-slightly progressed diffuse moderately enlarged mediastinal and hilar lymphadenopathy, suspicious for indolent lymphoproliferative disorder
PET scan 01/07/2023-Stable mediastinal and hilar lymphadenopathy with only mild FDG avid and favor reactive, stable right upper lobe nodule without significant FDG activity and a new 7 mm left upper lobe nodule without significant FDG activity,
grossly stable lymphadenopathy measuring up to 1.8 cm in the precarinal region with a maximum SUV 4.1, 3.6 cm in the right hilar region maximum SUV 2.9 and 2.5 cm in the left hilar region maximum SUV 2.7, 6 mm nodule right upper lobe maximum SUV 1.2
and the new 7 mm nodule in the left upper lobe maximum SUV 1.0-patient notified-repeat CT chest in 4 months make appointment with PFTs-Dr. Quinonez placed call to review with radiology-if lymph nodes are truly significantly larger I will discuss
potential biopsy sooner than the 4-month observational follow-up�������
PET 01/07/2023: Stable mediastinal and hilar lymphadenopathy, only mildly FDG avid and favored reactive. Precarinal lymph node measuring 1.8 cm, SUV max 4.1. 3.6 cm node in the right hilar region, max SUV 2.9. 2.5 cm node in the left hilar region,
max SUV 2.7. Stable small right upper lobe nodule without significant FDG activity, max SUV 1.2. New 7 mm left upper lobe nodule without significant FDG activity, max SUV 1. Overall findings are most in keeping with a waxing and waning
infectious/inflammatory process. Recommend follow-up nonstick contrast CT in 3 to 6 months.�������.�������
PET scan 01/07/23-Dr. Quinonez reviewed with radiology-asked for addendum as discrepancy was noted on CT and PET lymph node measurements-addendum reviewed-mediastinal and hilar lymphadenopathy is grossly stable in size compared to prior CT 12/24/22 when
measured in similar fashion .�������
Chest x-ray 03/07/23-Mild cardiomegaly, mild bilateral upper lobe emphysema, previous CABG .�������
Chest x-ray 07/07/43-NAD.�������
CT chest 07/07/43-slightly progressed diffuse moderately enlarged mediastinal and hilar lymphadenopathy, new right axillary lymphadenopathy suspicious for indolent lymphoproliferative disorder, stable or resolved small pulmonary nodules-patient
notified-told may need biopsy.�������
VQ scan 07/07/23-low probability for pulmonary embolism-patient notified
Echocardiogram 09/10/15-EF 55-60%, mild mitral regurgitation, no aortic stenosis, PA systolic 27��
�����
Cardiac catheterization 10/15/2177-Rfl-fesqlo CAD, patent DAVIS to LAD and SVG to OM 1, normal left ventricular function.�������
Cardioversion 01/01/22-successful cardioversion to sinus rhythm with 200 J synchronized shock�������
ECHO 07/09/2022: Normal LV size and function. EF 60 to 65%. Mild concentric LVH. Mild to moderate MR. Mild to moderate TR. Estimated PA pressure 49-51.
PFT 12/01/21-FEV1 2.11 L-73%, FVC 3.07 L-77BD response, TLC 73%, RV 69%, DLCO 46%. Mild restriction and moderate reduction in diffusing capacity.�������
Spirometry 03/02/22-FEV1 1.93 L-67%, FVC 2.75 L-69%. Mild restriction.�������
PFT 02/23/23-FEV1 2.23-70%, FVC 3.07-70%, TLC 76%, RV 73%, DLCO 29%, DLCO/VA 55%. Mild restriction and moderate reduction in diffusing capacity.�������
Spirometry 06/07/23-FEV1 1.98-70%, FVC 2.9-74%. Mild restriction.�������
Spirometry 08/23/23-FEV1 1.84-65%, FVC 2.6-67%. Moderate restriction.
HST 03/19/22-NACHO-16.7, desaturation derek 77, 4.8% of time, less than 90% saturation
Subjective Data
-
Date of Service:
Date of Service: August 03, 2024
Chief Complaint: Pulmonary Follow Up and Dyspnea Follow Up
Subjective:
Feels better, diuresis helped, less leg edema, no shortness of breath at rest, wheezing improved, no chest pain
Review of Systems
General: Other (Per HPI)
Objective Data
Data Reviewed
Vital Signs / I&O:
Vital Signs
Temp Pulse Resp BP Pulse Ox
97.3 F 67 18 136/75 94
08/03/24 08:03 08/03/24 08:32 08/03/24 08:28 08/03/24 08:32 08/03/24 08:28
Intake and Output
08/02/24 08/03/24 08/04/24
06:59 06:59 06:59
Intake Total 985 / 985 240 / 240
Output Total 2700 / 2700 1880 / 1880 150 / 150
Balance -1715 / -1715 -1640 / -1640 -150 / -150
SaO2: 94
Nasal Cannula flow liters per minute: 3
Physical Exam
General: Respiratory Distress (n) and Comfortable
HEENT: Normocephalic, Anicteric and Moist Mucous Membranes
Cardiovascular: Regular Rhythm and Peripheral Edema (+1)
Respiratory: Wheeze (Still some but improved), Crackles (Rare basilar), Rhonchi (n), Non-Labored Respirations, Accessory Resp Muscle Use (n) and Stridor (n)
GI: Soft, Non Distended and Non Tender
Neurology: Awake, Alert and No Motor Deficits
Skin: Warm, Good Color, Cyanosis (n) and Jaundice
Labs/Micro/Reports
Lab Data
08/03/24 09:04
08/03/24 09:04
--- NOTE | 2024-08-03 10:25 | PN.CDI ---
CDI
- -
CDI:
Physician Documentation Request
Admit Date: 08/01/24 11:20
Dear Kaycee Byrd,
Progress notes contain a diagnosis of 'Acute on chronic hypoxic respiratory failure RLD/COPD, on home O2'
08/01 nursing note states ' Pt arrived on 2liter nasal ,( pt wears at home)'
Could you please clarify patient respiratory status:
Acute on chronic hypoxic respiratory failure - patient uses oxygen continuously at home with increased oxygen during hospitalization
Hypoxia (intermittent home o2 use)
Other
Use of terms such as suspected, likely, concern for, or probable (associated with a specific diagnosis that is being evaluated, monitored, or treated as if it exists) are acceptable and can be coded in the inpatient setting, when documented at the
time of discharge.
Thank you,
Dorothy Monroe RN, BSN
CDI Specialist
tiger text
Please use your independent medical judgment in providing your response.
--- NOTE | 2024-08-03 11:08 | PTCARENOTE ---
Patient and pt did not want to wait for proper influenza vaccine to be restocked on unit. Pt discharged home with staff escort to car and left with spouse. RN reviewed all d/c medications and gave patient script for blood work.
--- NOTE | 2024-08-03 11:44 | W.DS.TRANS ---
DC Summary - [employer]
-
Discharge Instructions:
Discharge Diagnosis/Procedures Afib post ablation
Diet Low Cholesterol,Restrict fluids to 64 oz
Driving Restrictions No driving for 24 hours
Blood Work check BMP in 1 week- results to Dr. Hernandez
Specialty Instructions Weigh Daily
Instructions:
Stand-Alone Forms: DC Instructions- Cath/EP Lab
Changes to Home Medications: Yes
Discharge Medications:
DC Medications w/original date entered in [facility]
rosuvastatin 20 mg tablet 20 mg PO DAILY 11/07/12
allopurinol 100 mg tablet 100 mg PO DAILY 10/15/21
amlodipine 5 mg tablet 5 mg PO DAILY 10/15/21
apixaban 5 mg tablet (Eliquis) 5 mg PO BID 10/15/21
finasteride 5 mg tablet 5 mg PO DAILY 10/15/21
nebivolol 5 mg tablet (Bystolic) 5 mg PO QPM 11/10/22
budesonide 160 mcg-glycopyr 9 mcg-formot 4.8 mcg/actuation HFA inhaler (Breztri Aerosphere) 2 inh inhalation DAILY 07/05/24
epinephrine 0.3 mg/0.3 mL injection, auto-injector 0.3 mg IM DAILYPRN PRN bee sting 08/03/24
furosemide 40 mg tablet 40 mg PO DAILY #90 tabs 08/03/24
levalbuterol HCl 0.63 mg/3 mL solution for nebulization 0.63 mg (3 mL) inhalation R TID #0 mL 08/03/24
Home Medication Changes
DOSE INCREASE: furosemide
STOP: albuterol MN
NEW: levalbuterol MN
Pending Results: No
== END 2024-08-03 11:18 | disposition home or self-care (01) | DRG 273 ==
LOC: IVU 11:20
PROVIDERS: Nurse Practitioner; Nurse Practitioner Adult Health; ADMITTING PHYSICIAN Internal Medicine Cardiovascular Disease; CONSULT PHYSICIAN Internal Medicine Critical Care Medicine; FAMILY PHYSICIAN Family Medicine; REFERRING PHYSICIAN Nuclear Medicine Nuclear Cardiology
PROC: 4A0234Z Measurement of Cardiac Electrical Activity, Percutaneous Approach (ICD-10-PCS; 2024-08-01)
PROC: 4B02XSZ Measurement of Cardiac Pacemaker, External Approach (ICD-10-PCS; 2024-08-01)
PROC: 4A023FZ Measurement of Cardiac Rhythm, Percutaneous Approach (ICD-10-PCS; 2024-08-01)
PROC: 5A2204Z Restoration of Cardiac Rhythm, Single (ICD-10-PCS; 2024-08-01)
PROC: 02583ZZ Destruction of Conduction Mechanism, Percutaneous Approach (ICD-10-PCS; 2024-08-01)
PROC: 02K83ZZ Map Conduction Mechanism, Percutaneous Approach (ICD-10-PCS; 2024-08-01)
DX: I48.19 Other persistent atrial fibrillation (principal); I50.33 Acute on chronic diastolic (congestive) heart failure; J96.21 Acute and chronic respiratory failure with hypoxia; J44.1 Chronic obstructive pulmonary disease with (acute) exacerbation; G47.33 Obstructive sleep apnea (adult) (pediatric); R91.8 Other nonspecific abnormal finding of lung field; I25.10 Atherosclerotic heart disease of native coronary artery without angina pectoris; E66.01 Morbid (severe) obesity due to excess calories; J98.4 Other disorders of lung; I11.0 Hypertensive heart disease with heart failure; F32.A Depression, unspecified; G47.00 Insomnia, unspecified; M10.9 Gout, unspecified; D72.829 Elevated white blood cell count, unspecified; I27.29 Other secondary pulmonary hypertension; I07.1 Rheumatic tricuspid insufficiency; D64.9 Anemia, unspecified; R73.9 Hyperglycemia, unspecified; R59.0 Localized enlarged lymph nodes; Z68.35 Body mass index [BMI] 35.0-35.9, adult; Z95.1 Presence of aortocoronary bypass graft; Z95.0 Presence of cardiac pacemaker; Z79.01 Long term (current) use of anticoagulants; Z99.81 Dependence on supplemental oxygen
CPT/HCPCS: 36415; 71045; 80048; 80053; 83735; 83880; 85025; 85027; 85347; 85610; 86803; 86850; 86900; 86901; 90662; 93005; 93656; 93657; 94640; C1730; C1732; C1733; C1759; C1769; C1892; C1894; G0008

== ENCOUNTER → 2024-08-31 11:25 | Day surgery (SDC) | payer MEDICARE, OTHER, SELFPAY ==
--- NOTE | 2024-08-31 12:51 | ITS.CL.CARDI ---
[facility] - Cardioversion
Cardioversion
Procedure Report:
Procedure: Direct current electrical cardioversion
Pre-operative diagnosis: Persistent atrial fibrillation
Post-operative diagnosis: Persistent atrial fibrillation status post DC cardioversion to sinus rhythm
Anesthesia: MAC
Attending Physician: Axel Mares MD
Procedure Description: The patient was brought to the electrophysiology laboratory in the fasting state. Adherence to anticoagulation regimen was confirmed. Informed consent was obtained from the patient prior to the start of the procedure.
Electrodes were placed on the patient and connected to an external defibrillator. Monitoring of blood pressure, ECG tracings, and pulse oximetry was initiated. The pads were applied to the patient in the anterior and posterior positions. The patient
was sedated by the anesthesiologist. A 200 joule biphasic synchronized shock was delivered to the patient under MAC anesthesia. Sinus rhythm was successfully restored. The patient recovered uneventfully from MAC anesthesia. There were no immediate
post-procedure complications. The patient left the lab in good condition. The attending physician was present throughout the entire procedure.
Impression: Successful direct current cardioversion with scientologist of sinus rhythm after one 200 joule biphasic synchronized shock.
== END ==
LOC: CATH 11:25
PROVIDERS: ATTENDING PHYSICIAN Internal Medicine Cardiovascular Disease; FAMILY PHYSICIAN Family Medicine; OTHER PHYSICIAN Nuclear Medicine Nuclear Cardiology
DX: I48.19 Other persistent atrial fibrillation (principal); I11.0 Hypertensive heart disease with heart failure; I50.33 Acute on chronic diastolic (congestive) heart failure; J44.9 Chronic obstructive pulmonary disease, unspecified; I27.20 Pulmonary hypertension, unspecified; I49.5 Sick sinus syndrome; Z95.0 Presence of cardiac pacemaker; I25.10 Atherosclerotic heart disease of native coronary artery without angina pectoris; Z95.1 Presence of aortocoronary bypass graft; I07.1 Rheumatic tricuspid insufficiency; Z79.01 Long term (current) use of anticoagulants
CPT/HCPCS: 92960; 93005

== ENCOUNTER 2024-11-12 08:59 | Day surgery (SDC) | payer MEDICARE, OTHER, SELFPAY ==
--- NOTE | 2024-11-12 12:37 | ITS.CL.CARDI ---
[facility] - Cardioversion
Cardioversion
Procedure Report:
Date of Procedure: Nov 12 2024
Procedure: Cardioversion
Indication: Symptomatic atrial fibrillation
Performing Physician: Hay Gomes DO [facility]
Technique: The patient was brought to the holding area. Signed informed consent was obtained. A time out was called and performed. The patient was anesthetized by the anesthesia service. Anticoagulation status was reviewed and appropriate. R2 pads
were placed anteriorly and posteriorly. A 200 J synchronized biphasic shock was initiated which was unsuccessful in restoring sinus rhythm. Subsequent 300 J and 360 J shocks were initiated which were also unsuccessful in converting to sinus rhythm.
Conclusion: Uncomplicated cardioversion unsuccessful in converting to sinus.
Recommendation: Routine post cardioversion care. Continue nursing home anticoagulation. Amiodarone 200 mg BID for one month and then 200 mg daily. Check echo to reeval EF as outpt.
lasix 60 mg daily for 3 days and then back to 40 mg daily. Pt was encouraged to get pulm eval as outpt.
== END 2024-11-12 12:00 | disposition home or self-care (01) ==
LOC: CATH 08:59
PROVIDERS: ATTENDING PHYSICIAN Nuclear Medicine Nuclear Cardiology; FAMILY PHYSICIAN Family Medicine
DX: I48.0 Paroxysmal atrial fibrillation (principal); I25.10 Atherosclerotic heart disease of native coronary artery without angina pectoris; I10 Essential (primary) hypertension; E78.5 Hyperlipidemia, unspecified; G47.33 Obstructive sleep apnea (adult) (pediatric); Z95.1 Presence of aortocoronary bypass graft; Z95.0 Presence of cardiac pacemaker; Z79.01 Long term (current) use of anticoagulants
CPT/HCPCS: 92960; 93005

== ENCOUNTER → 2024-12-10 13:42 | Outpatient (REF) | payer MEDICARE, OTHER, SELFPAY | LOC: RCS 13:42 | PROVIDERS: ATTENDING PHYSICIAN Nuclear Medicine Nuclear Cardiology; FAMILY PHYSICIAN Family Medicine | DX: I34.0 Nonrheumatic mitral (valve) insufficiency (principal); I48.0 Paroxysmal atrial fibrillation | CPT/HCPCS: 93306 ==

== ENCOUNTER → 2025-10-15 13:27 | Outpatient (REF) | payer MEDICARE, OTHER, SELFPAY | LOC: HWRAD 13:27 | PROVIDERS: ATTENDING PHYSICIAN Nurse Practitioner Family; FAMILY PHYSICIAN Family Medicine | DX: R59.0 Localized enlarged lymph nodes (principal) | CPT/HCPCS: 71250 ==